=== PATIENT | female | born 1970 | race Caucasian/White ===

== ENCOUNTER 2016-07-18 13:13 | Emergency (ER) | payer OTHER ==
[~2016-07-18] VITALS: Ht 165.1 cm; Wt 108.0 kg
[~2016-07-18 13:13] MED LIST: BENICAR HCT 201 EACH PO; CIPRO500 MG PO; DITROPAN5 MG PO; HYDROCHLOROTH12.5 M3 PO; PRILOSEC20 MG PO; VALSARTAN40 MG PO
[2016-07-18] MEDS ORDERED: ULTRACET1 TABLET PO (15:29)
[2016-07-18 16:19] VITALS: BP 168/92
== END 2016-07-18 16:19 | disposition home or self-care (01) ==
LOC: EME 13:13
DX: M75.82 Other shoulder lesions, left shoulder (principal); S46.212A Strain of muscle, fascia and tendon of other parts of biceps, left arm, initial encounter; W01.0XXA Fall on same level from slipping, tripping and stumbling without subsequent striking against object, initial encounter; Y99.0 Civilian activity done for income or pay; I10 Essential (primary) hypertension; Z72.0 Tobacco use
CPT/HCPCS: 73030; 99281; 99283